=== PATIENT | male | born 1955 | race Caucasian/White ===

== ENCOUNTER 2018-01-05 09:34 | Emergency (ER) | payer SELFPAY ==
[~2018-01-05] VITALS: Ht 182.9 cm; Wt 84.4 kg
[2018-01-05 09:43] VITALS: Ht 182.9 cm; Wt 84.4 kg
[2018-01-05 11:24] LABS: BASOPHIL % 0.4 % (0-2); PLATELET COUNT 270 x10^3mcL (130-400); RED CELL DISTRIBUTION WIDTH 12.1 % (11.5-14.5)
[2018-01-05 11:55] LABS: CALCIUM 9.1 mg/dL (8.5-10.1); CARBON DIOXIDE 19.3 mmol/L (21-32); CHLORIDE SERUM 100 mmol/L (98-107); CREATININE SERUM 0.9 mg/dL (0.7-1.3); GFR1 > 60 mL/min; GLUCOSE SERUM 199 mg/dL (74-106); POTASSIUM SERUM 3.5 mmol/L (3.5-5.1); SODIUM SERUM 136 mmol/L (136-145)
[2018-01-05 12:03] LABS: ALBUMIN 3.9 g/dL (3.4-5.0); ALKALINE PHOSPHATASE 107 U/L (46-116); ALT/SGPT 27 U/L (16-63); AST/SGOT 32 U/L (15-37); BILIRUBIN TOTAL 1.11 mg/dL (0.20-1.00)
[2018-01-05 12:06] LABS: CK-MB 0.5 ng/mL (0-3.6); TOTAL PROTEIN, SERUM 8.4 g/dL (6.4-8.2)
[2018-01-05 12:21] LABS: microscopic required? YES; urine erythrocyte NEGATIVE (NEGATIVE)
[2018-01-05 12:34] LABS: C REACTIVE PROTEIN < 0.2 mg/dL (<=0.9)
[2018-01-05 12:36] LABS: FREE T4 1.04 ng/dL (0.76-1.46); FREE THYROXINE INDEX 3.5 ug/dL (1.4-4.5); T4(THYROXINE) 9.9 ug/dL (4.7-13.3)
[2018-01-05 12:45] LABS: T3 TOTAL 1.64 ng/mL
[2018-01-05 14:03] LABS: ERYTHROCYTE SED RATE 17 mm/hr (0-20)
[2018-01-05 15:28] VITALS: BP 163/112
== END 2018-01-05 15:30 | disposition left against medical advice (07) ==
LOC: ED 09:34
PROVIDERS: Specialist
DX: R04.2 Hemoptysis (principal); J98.4 Other disorders of lung; I10 Essential (primary) hypertension; R73.9 Hyperglycemia, unspecified; F17.210 Nicotine dependence, cigarettes, uncomplicated
CPT/HCPCS: 36600; 84439; J2543; J3490; J7030; Q0092; Q9967